=== PATIENT | female | born 1950 | race Caucasian/White ===

== ENCOUNTER → 2019-10-17 12:36 | Outpatient (BNVA) | payer MEDICARE, BC, SELFPAY | PROVIDERS: Family Provider Nurse Practitioner; PCP Nurse Practitioner; Visit Provider Nurse Practitioner | DX: E11.65 Type 2 diabetes mellitus with hyperglycemia (principal); I10 Essential (primary) hypertension; E66.9 Obesity, unspecified; R82.998 Other abnormal findings in urine | CPT/HCPCS: 80053; 80061; 81003; 83036; 87086 ==

== ENCOUNTER → 2020-01-09 11:14 | Outpatient (BNVA) | payer MEDICARE, BC, SELFPAY | PROVIDERS: Family Provider Nurse Practitioner; PCP Nurse Practitioner; Visit Provider Nurse Practitioner | DX: I10 Essential (primary) hypertension (principal); E11.65 Type 2 diabetes mellitus with hyperglycemia | CPT/HCPCS: 80053; 81003; 83036 ==

== ENCOUNTER → 2020-04-09 11:25 | Outpatient (BNVA) | payer MEDICARE, BC, SELFPAY | PROVIDERS: Family Provider Nurse Practitioner; PCP Nurse Practitioner; Visit Provider Nurse Practitioner | DX: E11.65 Type 2 diabetes mellitus with hyperglycemia (principal); F41.9 Anxiety disorder, unspecified; F32.9 Major depressive disorder, single episode, unspecified; I10 Essential (primary) hypertension | CPT/HCPCS: 80053; 81000; 83036; 84443 ==

== ENCOUNTER → 2020-07-13 10:29 | Outpatient (BNVA) | payer MEDICARE, BC, SELFPAY | PROVIDERS: Family Provider Nurse Practitioner; PCP Nurse Practitioner; Visit Provider Nurse Practitioner | DX: E11.65 Type 2 diabetes mellitus with hyperglycemia (principal); I10 Essential (primary) hypertension; F41.9 Anxiety disorder, unspecified; F32.9 Major depressive disorder, single episode, unspecified | CPT/HCPCS: 80053; 80061; 81000; 83036 ==

== ENCOUNTER → 2020-09-01 16:44 | Outpatient (BNVA) | payer MEDICARE, SELFPAY | PROVIDERS: Family Provider Nurse Practitioner; PCP Nurse Practitioner; Visit Provider Nurse Practitioner Family | DX: S60.222A Contusion of left hand, initial encounter (principal); X58.XXXA Exposure to other specified factors, initial encounter | CPT/HCPCS: 73110 ==

== ENCOUNTER 2020-09-02 15:13 | Outpatient (CLI) | payer MEDICARE, SELFPAY ==
--- NOTE | 2020-09-02 15:18 | XR_ITS ---
WS: [id number] Left wrist, 3 views, 09/02/2020 Clinical Data: left hand pain Comparison: None. Findings: No fractures or dislocations are seen. The carpal bones are intact. There is no soft tissue swelling. Small exostosis of the radial styloid is seen. The scaphoid is intact but there is cyst formation in the midportion. The base of the left first metacarpal shows osteoarthritic change. XR/XR wrist LT w scaphoid [id number] Impression: 1. Negative for definite scaphoid fracture. 2. 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 3. Negative for definite left wrist fracture.
== END 2020-09-02 15:14 | disposition home or self-care (01) ==
PROVIDERS: PCP Nurse Practitioner; Visit Provider Nurse Practitioner Family
DX: M19.042 Primary osteoarthritis, left hand (principal)
CPT/HCPCS: 73110

== ENCOUNTER → 2020-10-15 10:47 | Outpatient (BNVA) | payer MEDICARE, SELFPAY | PROVIDERS: PCP Nurse Practitioner; Visit Provider Nurse Practitioner | DX: E11.65 Type 2 diabetes mellitus with hyperglycemia (principal); I10 Essential (primary) hypertension; F41.9 Anxiety disorder, unspecified; F32.9 Major depressive disorder, single episode, unspecified | CPT/HCPCS: 80053; 80061; 81000; 83036 ==

== ENCOUNTER → 2021-01-08 09:15 | Outpatient (BNVA) | payer MEDICARE, SELFPAY | PROVIDERS: PCP Nurse Practitioner; Visit Provider Nurse Practitioner | DX: E11.65 Type 2 diabetes mellitus with hyperglycemia (principal); I10 Essential (primary) hypertension; F41.9 Anxiety disorder, unspecified; F32.9 Major depressive disorder, single episode, unspecified | CPT/HCPCS: 80053; 80061; 81000; 83036 ==

== ENCOUNTER → 2021-04-01 10:42 | Outpatient (BNVA) | payer MEDICARE, SELFPAY | PROVIDERS: PCP Nurse Practitioner; Visit Provider Nurse Practitioner | DX: E11.65 Type 2 diabetes mellitus with hyperglycemia (principal); I10 Essential (primary) hypertension; F41.9 Anxiety disorder, unspecified; F32.9 Major depressive disorder, single episode, unspecified | CPT/HCPCS: 80053; 80061; 81000; 83036 ==

== ENCOUNTER → 2021-06-24 11:46 | Outpatient (BNVA) | payer MEDICARE, SELFPAY | PROVIDERS: PCP Nurse Practitioner; Visit Provider Nurse Practitioner | DX: E11.65 Type 2 diabetes mellitus with hyperglycemia (principal); I10 Essential (primary) hypertension; F41.9 Anxiety disorder, unspecified; F32.9 Major depressive disorder, single episode, unspecified | CPT/HCPCS: 80053; 80061; 81000; 83036 ==

== ENCOUNTER → 2021-09-16 10:58 | Outpatient (BNVA) | payer MEDICARE, SELFPAY | PROVIDERS: PCP Nurse Practitioner; Visit Provider Nurse Practitioner | DX: E11.65 Type 2 diabetes mellitus with hyperglycemia (principal); I10 Essential (primary) hypertension; F41.9 Anxiety disorder, unspecified; F32.9 Major depressive disorder, single episode, unspecified | CPT/HCPCS: 80053; 80061; 81000; 83036 ==

== ENCOUNTER → 2021-12-09 08:49 | Outpatient (BNVA) | payer MEDICARE, SELFPAY | PROVIDERS: PCP Nurse Practitioner; Visit Provider Nurse Practitioner | DX: E11.65 Type 2 diabetes mellitus with hyperglycemia (principal) | CPT/HCPCS: 80053; 80061; 81000; 83036 ==

== ENCOUNTER → 2022-02-09 11:41 | Outpatient (BNVA) | payer MEDICARE, SELFPAY | PROVIDERS: PCP Nurse Practitioner; Visit Provider Nurse Practitioner | DX: E11.65 Type 2 diabetes mellitus with hyperglycemia (principal); I10 Essential (primary) hypertension; F41.9 Anxiety disorder, unspecified; F32.9 Major depressive disorder, single episode, unspecified; H65.20 Chronic serous otitis media, unspecified ear | CPT/HCPCS: 80053; 81000; 83036 ==

== ENCOUNTER → 2022-05-12 10:26 | Outpatient (BNVA) | payer MEDICARE, SELFPAY | PROVIDERS: PCP Nurse Practitioner; Visit Provider Nurse Practitioner | DX: E11.65 Type 2 diabetes mellitus with hyperglycemia (principal); Z79.4 Long term (current) use of insulin; I10 Essential (primary) hypertension; F41.9 Anxiety disorder, unspecified; F32.9 Major depressive disorder, single episode, unspecified; H65.20 Chronic serous otitis media, unspecified ear | CPT/HCPCS: 80053; 80061; 81000; 83036 ==

== ENCOUNTER → 2022-08-04 10:55 | Outpatient (BNVA) | payer MEDICARE, SELFPAY | PROVIDERS: PCP Nurse Practitioner; Visit Provider Nurse Practitioner | DX: E11.65 Type 2 diabetes mellitus with hyperglycemia (principal); Z79.4 Long term (current) use of insulin; I10 Essential (primary) hypertension; H65.20 Chronic serous otitis media, unspecified ear; F41.9 Anxiety disorder, unspecified; F32.9 Major depressive disorder, single episode, unspecified; R46.81 Obsessive-compulsive behavior; R20.2 Paresthesia of skin | CPT/HCPCS: 80053; 81000; 82607; 83036 ==

== ENCOUNTER → 2022-11-01 11:44 | Outpatient (BNVA) | payer MEDICARE, SELFPAY | PROVIDERS: PCP Nurse Practitioner; Visit Provider Nurse Practitioner | DX: E11.65 Type 2 diabetes mellitus with hyperglycemia (principal); Z79.4 Long term (current) use of insulin; I10 Essential (primary) hypertension; H65.20 Chronic serous otitis media, unspecified ear; R46.81 Obsessive-compulsive behavior; F41.9 Anxiety disorder, unspecified; F32.9 Major depressive disorder, single episode, unspecified | CPT/HCPCS: 80053; 80061; 81000; 83036 ==

== ENCOUNTER → 2023-02-22 16:30 | Outpatient (BNVA) | payer MEDICARE, SELFPAY | PROVIDERS: PCP Nurse Practitioner; Visit Provider Nurse Practitioner | DX: E11.65 Type 2 diabetes mellitus with hyperglycemia (principal); Z79.4 Long term (current) use of insulin; Z79.899 Other long term (current) drug therapy | CPT/HCPCS: 80053; 80061; 81000; 83036 ==

== ENCOUNTER → 2023-05-15 16:04 | Outpatient (BNVA) | payer MEDICARE, SELFPAY | PROVIDERS: PCP Nurse Practitioner; Visit Provider Nurse Practitioner | DX: E11.65 Type 2 diabetes mellitus with hyperglycemia (principal); Z79.4 Long term (current) use of insulin; I10 Essential (primary) hypertension; H65.20 Chronic serous otitis media, unspecified ear; F41.9 Anxiety disorder, unspecified; F32.9 Major depressive disorder, single episode, unspecified | CPT/HCPCS: 80053; 81000; 83036 ==

== ENCOUNTER 2023-06-24 11:43 | Outpatient (CLI) | payer MEDICARE, SELFPAY ==
--- NOTE | 2023-06-24 11:47 | XRR_ITS ---
PROCEDURE INFORMATION: Exam: XR Left Scapula Exam date and time: 06/24/2023 12:04 PM Age: 73 years old Clinical indication: Injury or trauma; Fall; Blunt trauma (contusions or hematomas); Shoulder; Left; Additional info: Shoulder injury TECHNIQUE: Imaging protocol: Radiologic exam of the left scapula. Complete exam. COMPARISON: CR XR chest 2V* [id number] 01/30/2018 12:14 PM FINDINGS: Bones/joints: Humeral head is appropriately positioned with respect of the glenoid. Moderate degenerative changes about the shoulder. Narrowing of the glenohumeral and acromiohumeral joint spaces. No displaced osseous fracture identified. Soft tissues: Superficial soft tissues are within normal limits. XR/[place] [id number] IMPRESSION: 1. No acute dislocation or displaced fracture. 2. Moderate degenerative changes about the shoulder with apparent narrowing of the acromiohumeral joint space.
== END 2023-06-24 11:44 | disposition home or self-care (01) ==
LOC: USWPI 11:50 → RAD 11:56
PROVIDERS: PCP Nurse Practitioner; Visit Provider Emergency Medicine
DX: S49.92XA Unspecified injury of left shoulder and upper arm, initial encounter (principal); M19.012 Primary osteoarthritis, left shoulder; X58.XXXA Exposure to other specified factors, initial encounter; Y93.9 Activity, unspecified; Y92.9 Unspecified place or not applicable; Y99.9 Unspecified external cause status
CPT/HCPCS: 73010

== ENCOUNTER 2023-08-03 18:04 | Outpatient (CLI) | payer MEDICARE, SELFPAY ==
--- NOTE | 2023-08-03 18:31 | XR_ITS ---
WS: [id number] Exam: XR thoracic spine 3V* [id number] Date/Time of Exam: 08/03/2023 6:31 PM Reason For Exam: M54.9 - Dorsalgia, unspecified No acute fracture or dislocation. Marked spondylosis of the midthoracic vertebra. Mild levoscoliosis. Normal paraspinal soft tissue structures. IMPRESSION: 1. Marked spondylosis with large anterior osteophytes involving mid and lower thoracic vertebra. Dege nerative disc changes in the mid and lower thoracic spine. 2. No fracture or malalignment. Levoscoliosis.
--- NOTE | 2023-08-03 18:31 | XR_ITS ---
WS: [id number] Exam: XR chest 2V* [id number] Date/Time of Exam: 08/03/2023 6:31 PM Reason For Exam: R05.9 - Cough, unspecified Comparison 01/30/2018. Lungs are clear. Normal cardiomediastinal silhouette. No pleural effusions. Spondylosis of the thorac ic spine. T-spine levoscoliosis. IMPRESSION: 1. No acute cardiopulmonary finding.
== END 2023-08-03 18:05 | disposition home or self-care (01) ==
LOC: RAD 18:08
PROVIDERS: PCP Nurse Practitioner; Visit Provider Nurse Practitioner
DX: M47.814 Spondylosis without myelopathy or radiculopathy, thoracic region (principal); M51.34 Other intervertebral disc degeneration, thoracic region; M25.78 Osteophyte, vertebrae; M54.9 Dorsalgia, unspecified; R05.9 Cough, unspecified
CPT/HCPCS: 71046; 72072; 80053; 80061; 81000; 83036

== ENCOUNTER 2023-08-12 12:13 | Emergency (ER) | payer MEDICARE, SELFPAY ==
[2023-08-12 12:30] VITALS: BP 112/68; PULSE 115; RESP 18; TEMP 36.5; O2SAT 98; BMI 31.1
[2023-08-12 13:16] LABS: Basophils % 0.3 %; Eosinophils % 0.3 %; Hematocrit 35.7 % (36-47); Lymphocytes # 0.4 10^3/uL (0.8-4.8); Lymphocytes % 4.2 %; Mean Corpuscular HGB Conc 32.8 g/dL (30-55); Mean Corpuscular Hemoglobin 28.4 pg (27-33); Mean Corpuscular Volume 86.7 fl (85-98); Mean Platelet Volume 9.4 fL (7.4-10.4); Monocytes # 0.3 10^3/uL (0.2-0.9); Monocytes % 3.6 %; Neutrophils # 8.55 10^3/uL (1.8-7.7); Neutrophils % 90.8 %; Nucleated Red Blood Cells % 0 %; Platelet Count 463 10^3/cmm (157-399); Red Blood Count 4.12 10^6/uL (3.85-5.65); Red Cell Distribution Width 13.4 % (12.1-15.1); White Blood Count 9.43 10^3/uL (3.29-11.43)
[2023-08-12 13:33] LABS: Alanine Aminotransferase 11 U/L (0-33); Albumin Level 3.3 g/dL (3.5-5.2); Alkaline Phosphatase 150 U/L (35-105); Anion Gap 14.6 (5-19); Aspartate Amino Transferase 14 U/L (0-32); Blood Urea Nitrogen 12 mg/dL (8-23); Calcium 9.2 mg/dL (8.5-10.5); Carbon Dioxide 24 mmol/L (22-29); Chloride 97 mmol/L (98-107); Globulin 3.6 g/dL (1.3-4.6); Glucose 226 mg/dL (65-115); Osmolality Calculated 281 mOsm/kg (285-295); Potassium 3.6 mmol/L (3.5-5.1); Sodium 132 mmol/L (136-145); Total Bilirubin 0.9 mg/dL (0.15-1.2); Total Protein 6.9 g/dL (6.6-8.7)
--- NOTE | 2023-08-12 13:42 | W.ED.RECABL ---
HPI - Recheck/Abnormal Lab/Rx General: Chief Complaint: Recheck/Abnormal Lab/Rx Stated Complaint: Lower back pain Time Seen by Provider: 08/12/23 13:15 Source: patient Mode of arrival: ambulatory Limitations: no limitations History of Present Illness: Patient presents emergency department today after being notified by her primary care doctor yesterday she had abnormal liver labs. Patient was seen by her primary care doctor on 08/03 after complaints of not feeling well. She states she has been having some vomiting sporadically over the last 3 weeks or so. She notes especially at night while she is laying down she is having the sensation she is going to vomit and having reflux-most of the time when she gets sick it happens at night because of this. Patient has not had a diagnosis of GERD in the past and is not currently on any type of PPI or H2 deepa. Patient is concerned about eating because of the sensation that she gets and has been sticking to a more liquid diet which seems to have somewhat improved her symptoms. She states she is under quite a bit of stress as even though she is retired, has started back to work and is working approximately 5 to 6 hours daily. She feels overwhelmed and is increasingly fatigued because of this. She also complains of acute on chronic low back pain. She notes she was told by the primary care doctor that her liver function tests were elevated and wanted her to check for yellowing of her eyes. Patient states when she asked her family to check they thought her eyes looked yellow. Patient denies fevers, rashes, or chest pains. Review of Systems General: Reports: 10 or more systems reviewed and unremarkable except in HPI and below PFSH ED PFSH: Medical History Diabetes mellitus with hyperglycemia, with long-term current use of insulin Class 1 obesity in adult Anxiety and depression Essential (primary) hypertension Surgical History History of cholecystectomy 2018 H/O: hysterectomy (~2000) Family History Other Dementia Diabetes Hypertension Social History Smoking and tobacco/nicotine status: former use of tobacco/nicotine Second hand smoke exposure: No Alcohol intake: never Substance/Drug Use: never Adopted: No Caregiver/support person: No Lives independently: Yes Marital status: Number of children: 2 service: No Current occupational status: employed Pets and animals: Yes Do you think of yourself as: Straight/Heterosexual Current gender identity: Female Physical Exam Const: COMMON NORMALS: no acute distress, patient oriented x3 and alert OTHER: Patient is pleasant, social. Answers her own history. HENMT: COMMON NORMALS: normocephalic, atraumatic, hearing grossly normal bilaterally and moist oral mucous membranes HEAD & SCALP: normocephalic and atraumatic Eye: COMMON NORMALS: Equal, round and reactive pupils present, EOMs intact bilaterally and conjunctivae normal CONJUNCTIVA: Yes conjunctivae normal PUPIL: Yes Equal, round and reactive pupils present OTHER: No scleral icterus Neck/C-Spine: COMMON NORMALS: full ROM and no JVD Lymph: LYMPHATIC: no lymphadenopathy noted Resp: COMMON NORMALS: normal respiratory effort, No retractions, No use of accessory muscles and clear to auscultation bilaterally AUSCULTATION: clear to auscultation bilaterally Cardio: COMMON NORMALS: no JVD, regular rate and regular rhythm RATE: regular rate RHYTHM: regular rhythm GI: OTHER: Abdomen is soft, nontender to palpation. Covington's negative. No epigastric tenderness on palpation. : COMMON NORMALS: Yes no CVA tenderness BLADDER/KIDNEY EXAM: Yes no CVA tenderness Back/Pelvis: COMMON NORMALS: no CVA tenderness, no thoracic nor lumbar tenderness and thoraco-lumbar ROM normal Extremity: COMMON NORMALS: normal to inspection, full ROM and capillary refill normal Neuro: COMMON NORMALS: patient oriented x3 SENSORIUM/ORIENTATION: Yes alert Psych: COMMON NORMALS: mental status grossly normal, Normal thought process present, cooperative, normal affect and activity/motor behavior normal THOUGHT PROCESS: Normal thought process present Skin: COMMON NORMALS: no rashes or lesions noted and no wounds GENERAL SKIN EXAM: no rashes or lesions noted Course Vital Signs: Vital signs: Vital Signs Temperature 97.7 F 08/12/23 12:30 Pulse Rate 115 H 08/12/23 12:30 Respiratory Rate 18 08/12/23 12:30 Blood Pressure 112/68 08/12/23 12:30 Pulse Oximetry 98 08/12/23 12:30 Oxygen Delivery Me thod Room Air 08/12/23 12:30 MDM - Recheck/Abnormal Lab/Rx Medical Decision Making Patient's chart review showed she had liver function test on 08/03 of AST 59/ALT 52. Today her liver function tests are within normal limits. Patient has not had any elevated bilirubin levels. Her urinalysis from the showed no signs of any urobilinogen. Patient's abdominal examination was benign without tenderness in the right upper quadrant or epigastric region. Patient is describing episodes of reflux-especially worse at night when she is laying down. We discussed treatment with a PPI to see if that can help with her symptoms but, as this is somewhat new for her, could be related to increased stressors at her workplace. It is still recommended that she follow-up with her primary care doctor to discuss. Patient also mentions acute on chronic low back pain. She states she has had her spine evaluated before and has been told she has quite a bit of arthritis throughout her back and that she was told she would just have to live with it . We discussed use of NSAIDs and acetaminophen. As her liver enzyme levels are normal, we discussed appropriate dosing of Tylenol as well as appropriate dosing of NSAIDs. We will also try a at bedtime dosing of Robaxin to see if this helps with her pain which also seems to be worse while she is trying to sleep. Patient can follow-up with her primary care doctor next week but, we discussed strict return precautions for any change in her condition over the weekend or over the holiday for her to be seen and reevaluated back here in the emergency department. Patient verbalizes her understanding and agreement to the treatment plan. Differential Diagnosis Unlikely encounter for medication refill, encounter for wound recheck, encounter for recheck of burn, encounter for removal of sutures or warfarin-induced coagulopathy Lab Data 08/12/23 12:57 08/12/23 12:57 Laboratory Results WBC 9.43 10^3/uL (3.29-11.43) 08/12/23 12:57 RBC 4.12 10^6/uL (3.85-5.65) 08/12/23 12:57 Hgb 11.70 g/dL (11.27-16.99) 08/12/23 12:57 Hct 35.7 % (36-47) L 08/12/23 12:57 MCV 86.7 fl (85-98) 08/12/23 12:57 MCH 28.4 pg (27-33) 08/12/23 12:57 MCHC 32.8 g/dL (30-55) 08/12/23 12:57 RDW 13.4 % (12.1-15.1) 08/12/23 12:57 Plt Count 463 10^3/cmm (157-399) H 08/12/23 12:57 MPV 9.4 fL (7.4-10.4) 08/12/23 12:57 Neut % (Auto) 90.8 % 08/12/23 12:57 Lymph % (Auto) 4.2 % 08/12/23 12:57 [place] % (Auto) 3.6 % 08/12/23 12:57 Eos % (Auto) 0.3 % 08/12/23 12:57 Baso % (Auto) 0.3 % 08/12/23 12:57 Neut # (Auto) 8.55 10^3/uL (1.8-7.7) H 08/12/23 12:57 Lymph # (Auto) 0.4 10^3/uL (0.8-4.8) L 08/12/23 12:57 [place] # (Auto) 0.3 10^3/uL (0.2-0.9) 08/12/23 12:57 Eos # (Auto) 0.0 10^3/uL (0.0-0.8) 08/12/23 12:57 Baso # (Auto) 0.0 10^3/uL (0.0-0.1) 08/12/23 12:57 Nucleated RBC % (auto) 0 % 08/12/23 12:57 Nucleated RBCs # 0.0 /100WBC 08/12/23 12:57 Sodium 132 mmol/L (136-145) L 08/12/23 12:57 Potassium 3.6 mmol/L (3.5-5.1) 08/12/23 12:57 Chloride 97 mmol/L (98-107) L 08/12/23 12:57 Carbon Dioxide 24 mmol/L (22-29) 08/12/23 12:57 Anion Gap 14.6 (5-19) 08/12/23 12:57 BUN 12 mg/dL (8-23) 08/12/23 12:57 Creatinine 0.7 mg/dL (0.5-0.9) 08/12/23 12:57 GFR Calculation Not Reportable 08/12/23 12:57 Glucose 226 mg/dL (65-115) H 08/12/23 12:57 Calculated Osmolality 281 mOsm/kg (285-295) L 08/12/23 12:57 Calcium 9.2 mg/dL (8.5-10.5) 08/12/23 12:57 Total Bilirubin 0.9 mg/dL (0.15-1.2) 08/12/23 12:57 AST 14 U/L (0-32) 08/12/23 12:57 ALT 11 U/L (0-33) 08/12/23 12:57 Alkaline Phosphatase 150 U/L (35-105) H 08/12/23 12:57 Total Protein 6.9 g/dL (6.6-8.7) 08/12/23 12:57 Albumin 3.3 g/dL (3.5-5.2) L 08/12/23 12:57 Globulin 3.6 g/dL (1.3-4.6) 08/12/23 12:57 No radiology studies performed this visit Discharge Plan Discharge Patient Disposition: Home Clinical Impression: Alteration in lab values Low back pain Qualifiers: Chronicity: chronic Back pain laterality: midline Sciatica presence: without sciatica Qualified Code(s): M54.50 - Low back pain, unspecified Acid reflux Qualifiers: Esophagitis presence: esophagitis presence not specified Qualified Code(s): K21.9 - Gastro-esophageal reflux disease without esophagitis Condition: Stable Prescriptions: New Protonix 40 mg tablet,delayed release (DR/EC) 40 mg PO DAILY 28 Days Qty: 30 0RF methocarbamol 750 mg tablet 750 mg PO TID Qty: 21 0RF No Action (DME) pen needle, diabetic 33 gauge x 5/32 needle See Rx Instructions .ROUTE .MEDSUPPLY Qty: 100 5RF Rx Instructions: 1 time day amlodipine 5 mg tablet 5 mg PO DAILY Qty: 90 1RF cetirizine [Zyrtec] 10 mg tablet 10 mg PO DAILY Qty: 30 5RF Farxiga 10 mg tablet 10 mg PO QAM Qty: 30 5RF fenofibrate nanocrystallized [Tricor] 48 mg tablet 48 mg PO DAILY Qty: 90 1RF furosemide [Lasix] 20 mg tablet 20 mg PO QAM Qty: 30 5RF insulin detemir U-100 100 unit/mL (3 mL) insulin pen See Rx Instructions SUBCUT DAILY Qty: 15 5RF Rx Instructions: up to 80 subcutaneously daily; Victoza 3-Oscar 0.6 mg/0.1 mL (18 mg/3 mL) pen injector 1.8 mg SUBCUT Q24H Qty: 9 5RF losartan [Cozaar] 100 mg tablet 100 mg PO DAILY Qty: 90 1RF metformin 500 mg tablet extended release 24 hr 2,000 mg PO DAILY Qty: 120 5RF venlafaxine [Effexor XR] 37.5 mg capsule,extended release 24hr 37.5 mg PO DAILY Qty: 30 5RF Discharge Orders: Discharge ED (Routine); Ordered 08/12/23 Ordered By: Mehreen Astudillo Referrals: Cristela Broussard, [employer] [Primary Care Provider] - Discharge Diet: Diabetic Discharge Activity: Increase activity as tolerated Patient Instructions: GERD (Gastroesophageal Reflux Disease) (DC), Lower Back Exercises (ED) Activity Restrictions/Additional Instructions: Repeat of your liver enzymes today show they have returned back to well within normal limits. You have no signs of any elevated bilirubin and, when I looked back at your urinalysis from the , you had no signs of bili or urobilinogen in your urine at that time. After our discussion, it does sound like you are dealing with reflux-especially at night. I am going to put you on a medication (protonix) that will help reduce the amount of stomach acid produced. This can help with your heartburn or reflux symptoms you are experiencing at night. Also, with your worsening chronic low back pain-especially at night, we can try and add a medication called Robaxin. This is a muscle relaxer which can make you feel drowsy or sedated so, you may wish to take a single dose just before bed to help you with your pain without causing drowsiness during the day. If you do not deal with kidney disease and tolerate NSAIDs, you may also wish to take ibuprofen to help with your back pain however, this medication can cause upset stomach so just continue to monitor. I would recommend taking 3 to 4 tablets of ibuprofen as needed every 8 hours for your pain. Since your liver enzymes have returned back to normal, you may wish to take 1 to 2 tablets of acetaminophen at this time as well. Although your family practitioner is out of the office next week, I do recommend touching base with their clinic to get a recheck to make sure symptoms of reflux/upset stomach and acute worsening of your low back pain have improved with treatment. However, if you have any acute worsening over the weekend over the holiday we do recommend you be seen and reevaluated through the emergency department without attempting to wait for an appointment with your primary care doctor. Coding Level of Care Code ED [employer] for Braxton Kelly
== END 2023-08-12 14:42 | disposition home or self-care (01) ==
PROVIDERS: Emergency Medicine; Emergency Provider Physician Assistant; PCP Nurse Practitioner
DX: K21.9 Gastro-esophageal reflux disease without esophagitis (principal); G89.29 Other chronic pain; M54.50 Low back pain, unspecified; R79.9 Abnormal finding of blood chemistry, unspecified; Z79.84 Long term (current) use of oral hypoglycemic drugs; Z79.4 Long term (current) use of insulin; Z87.891 Personal history of nicotine dependence; E11.9 Type 2 diabetes mellitus without complications; I10 Essential (primary) hypertension
CPT/HCPCS: 36415; 80053; 85025; 99283

== ENCOUNTER 2023-08-24 08:21 | Outpatient (CLI) | payer MEDICARE, SELFPAY ==
--- NOTE | 2023-08-24 08:45 | US_ITS ---
WS: [id number] Complete ABDOMINAL ULTRASOUND HISTORY: R74.01 - Elevation of levels of liver transaminase levels COMPARISON: 05/14/2018 Liver: 17.3 cm in length. Liver is top normal size with mild diffuse hepatic steatosis. No mass or bi le duct dilatation. Portal Vein: Normal hepatopetal flow with monophasic waveform. Gallbladder: Prior cholecystectomy. CBD: 0.4 cm Pancreas: Normal size and echogenicity. Right kidney: 10.2 cm x 6.1 x 5.6 cm. Cortex: 1.2 cm. Normal size and echogenicity. No hydronephrosis or mass. Left kidney: 11.3 cm x 5.8 cm x 5.5 cm. Cortex: 1.2 cm. Normal size and echogenicity. No hydronephrosis or mass. Spleen: Normal. Granulomata. Aorta and IVC: Unremarkable abdominal aorta and IVC. Impression: 1. Prior cholecystectomy. 2. No hydronephrosis. 3. Mild hepatic steatosis.
== END 2023-08-24 08:22 | disposition home or self-care (01) ==
LOC: RAD 08:21
PROVIDERS: PCP Nurse Practitioner; Visit Provider Nurse Practitioner
DX: K76.0 Fatty (change of) liver, not elsewhere classified (principal); R74.01 Elevation of levels of liver transaminase levels
CPT/HCPCS: 76700

== ENCOUNTER → 2023-10-24 11:59 | Outpatient (BNVA) | payer MEDICARE, SELFPAY | PROVIDERS: PCP Nurse Practitioner; Visit Provider Nurse Practitioner | DX: R74.01 Elevation of levels of liver transaminase levels; K52.9 Noninfective gastroenteritis and colitis, unspecified; Z79.899 Other long term (current) drug therapy | CPT/HCPCS: 80053; 80061; 81000; 83036; 85025; 86705; 86706; 86709; 86803; 87340 ==

== ENCOUNTER → 2024-01-09 10:37 | Outpatient (BNVA) | payer MEDICARE, SELFPAY | PROVIDERS: PCP Nurse Practitioner; Visit Provider Nurse Practitioner | DX: E11.9 Type 2 diabetes mellitus without complications (principal); E11.65 Type 2 diabetes mellitus with hyperglycemia; Z79.4 Long term (current) use of insulin; I10 Essential (primary) hypertension; R05.9 Cough, unspecified; M54.9 Dorsalgia, unspecified; E66.9 Obesity, unspecified; H65.20 Chronic serous otitis media, unspecified ear; F41.9 Anxiety disorder, unspecified; F32.9 Major depressive disorder, single episode, unspecified; Z78.9 Other specified health status; Z79.899 Other long term (current) drug therapy | CPT/HCPCS: 80053; 80061; 81000; 83036; 84443 ==

== ENCOUNTER 2024-02-05 16:50 | Outpatient (CLI) | payer MEDICARE, SELFPAY ==
--- NOTE | 2024-02-05 17:01 | XRR_ITS ---
PROCEDURE INFORMATION: Exam: XR Lumbosacral Spine Exam date and time: 02/05/2024 5:06 PM Age: 73 years old Clinical indication: Low back pain; Patient HX: Cough and fluid for the last week and a half. Pain in right ribs. ; Additional info: M54.50 - low back pain, unspecified TECHNIQUE: Imaging protocol: Radiologic exam of the lumbosacral spine. Views: 2 or 3 views. COMPARISON: CR XR thoracic spine 3V* [id number] 08/03/2023 6:32 PM FINDINGS: Bones/joints: Severe degenerative change of the visualized osseous structures. Diffuse demineralization. Soft tissues: Unremarkable. Organs: Cholecystectomy clips are appreciated in the right upper quadrant. Vasculature: Multiple calcified pelvic phleboliths are noted. Peripheral arterial vascular disease is noted. XR/XR lumbar spine 2-3V* [id number] IMPRESSION: 1. No acute findings. 2. Additional findings as above.
== END 2024-02-05 16:51 | disposition home or self-care (01) ==
PROVIDERS: PCP Nurse Practitioner; Visit Provider Nurse Practitioner
DX: M54.50 Low back pain, unspecified (principal); M79.604 Pain in right leg
CPT/HCPCS: 72100

== ENCOUNTER → 2024-06-25 10:38 | Outpatient (BNVA) | payer MEDICARE, SELFPAY | PROVIDERS: PCP Nurse Practitioner; Visit Provider Nurse Practitioner | DX: E11.9 Type 2 diabetes mellitus without complications (principal) | CPT/HCPCS: 80053; 81000; 83036 ==

== ENCOUNTER → 2024-12-03 10:27 | Outpatient (BNVA) | payer MEDICARE, SELFPAY | PROVIDERS: PCP Nurse Practitioner; Visit Provider Nurse Practitioner | DX: E11.9 Type 2 diabetes mellitus without complications (principal) | CPT/HCPCS: 80053; 80061; 81000; 83036; 85025 ==

== ENCOUNTER 2024-12-13 13:01 | Outpatient (CLI) | payer MEDICARE, SELFPAY ==
--- NOTE | 2024-12-13 13:03 | MM_ITS ---
WS: [id number] BILATERAL 3D TOMOSYNTHESIS DIGITAL SCREENING MAMMOGRAPHY WITH CAD CLINICAL INFORMATION: Z12.31 - Encounter for screening mammogram for malignant ... HISTORY: Screening mammogram. No current complaints. COMPARISON: 2013 TECHNIQUE: Bilateral CC and MLO views. FINDINGS: Scattered fibroglandular densities bilaterally. No suspicious focal mass, asymmetry, calcifications, or architectural distortion. No evidence of malignancy. Incidental punctate calcifications. MM/MM scr tomosynthesis [id number] IMPRESSION: DENSITY: There are scattered areas of fibroglandular density. BI-RADS: 2 - Benign. FOLLOW UP: 1 Year Follow-up Recommend return to annual screening mammography.
--- NOTE | 2024-12-13 13:30 | XR_ITS ---
WS: [id number] SCREENING DEXA SCAN [employer] CLINICAL INFORMATION: Z78.0 - Asymptomatic menopausal state COMPARISON: None. FINDINGS: The L1-L4 bone mineral density measures 1.285 g/cm2. This corresponds to a T score score of 0.9 and Z score of 2.0. Left femoral neck bone mineral density measures 0.861 g/cm2. This corresponds to a T score of -1.2 and Z score of 0.1. Right femoral neck bone mineral density measures 0.893 g/cm2. This corresponds to a T score -0.9of and Z score of 0.4. Mean femoral neck bone mineral density measures 0.877 g/cm2. This corresponds to a T score of -1.0 and Z score of 0.3. XR/XR DEXA axial skeleton* [id number] IMPRESSION: Normal bone mineralization lumbar spine. Osteopenia femoral necks. Patient's FRAX calculated 10 year probability for major osteoporotic fracture i s 11.1% and osteoporotic hip fracture is 2.4%.
== END 2024-12-13 13:02 | disposition home or self-care (01) ==
PROVIDERS: PCP Nurse Practitioner; Visit Provider Nurse Practitioner
DX: Z12.31 Encounter for screening mammogram for malignant neoplasm of breast (principal); Z78.0 Asymptomatic menopausal state; R92.323 Mammographic fibroglandular density, bilateral breasts; R92.1 Mammographic calcification found on diagnostic imaging of breast; M85.88 Other specified disorders of bone density and structure, other site
CPT/HCPCS: 77063; 77067; 77080

== ENCOUNTER → 2025-02-19 11:06 | Outpatient (BNVA) | payer MEDICARE, SELFPAY | PROVIDERS: PCP Nurse Practitioner; Visit Provider Nurse Practitioner | DX: E11.65 Type 2 diabetes mellitus with hyperglycemia (principal); E55.9 Vitamin D deficiency, unspecified; Z79.4 Long term (current) use of insulin | CPT/HCPCS: 80053; 81000; 82306; 83036 ==

== ENCOUNTER → 2025-05-22 11:28 | Outpatient (BNVA) | payer MEDICARE, SELFPAY | PROVIDERS: PCP Nurse Practitioner; Visit Provider Nurse Practitioner | DX: E55.9 Vitamin D deficiency, unspecified (principal); I10 Essential (primary) hypertension; Z79.4 Long term (current) use of insulin; E11.65 Type 2 diabetes mellitus with hyperglycemia | CPT/HCPCS: 80053; 80061; 81000; 82043; 82306; 82607; 83036 ==